=== PATIENT | male | born 1955 ===

== ENCOUNTER 2019-08-31 16:20 | Inpatient (IN) ==
[2019-08-31 17:51] LABS: Basophils % 0.3 % (0.0-0.8); Eosinophils % 0.1 % (0.00-10.9); Hematocrit 35.4 VOL% (42.0-52.0); Hemoglobin 12.3 GM/DL (14.0-18.0); Immature Granulocytes Absolute 0.12 #; Lymphocytes # 0.9 10*3/uL (1.4-4.0); Lymphocytes % 7.4 % (21.2-54.2); Mean Corpuscular HGB Conc 34.7 GM/DL (32-36); Mean Corpuscular Volume 93.4 FL (87-102); Mean Platelet Volume 8.8 FL (9.6-12.0); Monocytes % 10.5 % (1.7-12.7); Neutrophils % 80.7 % (38.7-73.9); Platelet Count 538 T/CUMM (130-400); Red Blood Count 3.79 MC/CUMM (3.8-5.5); Red Cell Distribution Width 13.7 % (9.3-17.3); White Blood Count 11.7 T/CUMM (4-12)
[2019-08-31 18:11] LABS: Calcium 8.5 MG/DL (8.5-10.1); Osmolality,Calculated 242.1 MOS/KG (273-304); Total Protein 7.5 G/DL (6.4-8.3)
[2019-08-31] MEDS ORDERED: GLUCAGON 1 MG VIAL IM PRN (19:14)
[2019-08-31] MEDS ORDERED: DEXTROSE 10% 250 ML BAG IV PRN (19:14)
[2019-08-31] MEDS ORDERED: ZALEPLON 5 MG CAPSULE PO PRN (19:14)
[2019-08-31] MEDS ORDERED: BISACODYL 5 MG TABLET PO PRN (19:14)
[2019-08-31] MEDS ORDERED: ONDANSETRON 4 MG/2 ML VIAL IV PRN (19:14)
[2019-08-31] MEDS: SODIUM CHLORIDE 0.9% 1,000 ML IV SCH (21:27)
[2019-08-31] MEDS: ENOXAPARIN 40 MG/0.4 ML SYRINGE SUBCUT SCH (21:27)
[2019-08-31] MEDS: THIAMINE INJ 100 MG, FOLIC ACID INJ 1 MG, MAGNESIUM SULF INJ 2 GM, MULTIVITAMIN INJ 10 ... IV SCH (21:30)
[2019-09-01 05:09] LABS: Basophils % 0.4 % (0.0-0.8); Eosinophils % 0.4 % (0.00-10.9); Hematocrit 32.8 VOL% (42.0-52.0); Hemoglobin 11.3 GM/DL (14.0-18.0); Immature Granulocytes % 1.8 %; Immature Granulocytes Absolute 0.12 #; Lymphocytes # 1.1 10*3/uL (1.4-4.0); Lymphocytes % 16.5 % (21.2-54.2); Mean Corpuscular HGB Conc 34.5 GM/DL (32-36); Mean Corpuscular Volume 95.3 FL (87-102); Mean Platelet Volume 9.4 FL (9.6-12.0); Neutrophils % 64.9 % (38.7-73.9); Platelet Count 585 T/CUMM (130-400); Red Blood Count 3.44 MC/CUMM (3.8-5.5); Red Cell Distribution Width 13.7 % (9.3-17.3); White Blood Count 6.7 T/CUMM (4-12)
[2019-09-01 05:24] LABS: Osmolality,Calculated 254.9 MOS/KG (273-304)
[2019-09-01 05:35] LABS: Eosinophils 2 % (0-10); Lymphocytes 19 % (20-55); Platelet Estimate Adequate; Segmented Neutrophils 70 % (50-85); Total Cells Counted 100
[2019-09-01] MEDS ORDERED: ceFAZolin 1,000 MG in SYRINGE 1 EACH IV ONE (08:00)
[2019-09-01] MEDS ORDERED: POTASSIUM CHLORIDE 20 MEQ TABLET PO ONE (08:00)
[2019-09-01] MEDS: SODIUM CHLORIDE 0.9% 1,000 ML IV SCH ×4 (09:33→22:53)
[2019-09-01] MEDS: PANTOPRAZOLE 40 MG TABLET PO SCH (09:33)
[2019-09-01] MEDS ORDERED: TRANEXAMIC ACID 1,000 MG/10 ML VIAL ONE (11:11)
[2019-09-01] MEDS ORDERED: fentaNYL 100 MCG/2 ML VIAL ONE (11:29)
[2019-09-01] MEDS ORDERED: LABETALOL 100 MG/20 ML VIAL IV ONE ×2 (11:29→12:43)
[2019-09-01] MEDS ORDERED: SUGAMMADEX 200 MG/2 ML VIAL IV ONE (11:41)
[2019-09-01] MEDS ORDERED: diphenhydrAMINE CAP 25 MG CAPSULE PO PRN (11:59)
[2019-09-01] MEDS ORDERED: LACTULOSE 20 GM/30 ML UDCUP PO PRN (11:59)
[2019-09-01] MEDS ORDERED: PROMETHAZINE 25 MG/1 ML VIAL IM PRN (11:59)
[2019-09-01] MEDS ORDERED: BISACODYL 10 MG SUPP RECTAL PRN (11:59)
[2019-09-01] MEDS ORDERED: MAGNESIUM HYDROXIDE SUSP 30 ML UDCUP PO PRN (11:59)
[2019-09-01] MEDS ORDERED: MORPHINE 4 MG/1 ML VIAL IV PRN ×2 (11:59→12:26)
[2019-09-01] MEDS ORDERED: propofoL 200 MG/20 ML VIAL IV ONE (12:42)
[2019-09-01] MEDS ORDERED: SEVOFLURANE 1 UNIT/15 MINUTE INH ONE (12:42)
[2019-09-01] MEDS ORDERED: LIDOCAINE 2% 5 ML VIAL ONE (12:42)
[2019-09-01] MEDS ORDERED: MIDAZOLAM 2 MG/2 ML VIAL ONE (12:42)
[2019-09-01] MEDS ORDERED: fentaNYL 250 MCG/5 ML VIAL ONE (12:42)
[2019-09-01] MEDS ORDERED: ONDANSETRON 4 MG/2 ML VIAL ONE (12:43)
[2019-09-01] MEDS ORDERED: ROCURONIUM 100 MG/10 ML VIAL IV ONE (12:43)
[2019-09-01] MEDS ORDERED: DEXAMETHASONE 4 MG/1 ML VIAL ONE (12:43)
[2019-09-01] MEDS ORDERED: SUCCINYLCHOLINE 200 MG/10 ML VIAL ONE (12:43)
[2019-09-01] MEDS ORDERED: PHENYLEPHRINE 1 MG/10 ML SYRINGE IV ONE (12:43)
[2019-09-01] MEDS: ceFAZolin 1,000 MG in SYRINGE 1 EACH IV SCH (16:18)
[2019-09-01] MEDS: THIAMINE INJ 100 MG, FOLIC ACID INJ 1 MG, MAGNESIUM SULF INJ 2 GM, MULTIVITAMIN INJ 10 ... IV SCH (22:30)
[2019-09-01] MEDS: ENOXAPARIN 40 MG/0.4 ML SYRINGE SUBCUT SCH (22:30)
[2019-09-02] MEDS: ceFAZolin 1,000 MG in SYRINGE 1 EACH IV SCH (00:35)
[2019-09-02 07:16] LABS: Basophils % 0.2 % (0.0-0.8); Eosinophils % 0.2 % (0.00-10.9); Hematocrit 30.2 VOL% (42.0-52.0); Hemoglobin 10.1 GM/DL (14.0-18.0); Immature Granulocytes Absolute 0.11 #; Lymphocytes % 9.4 % (21.2-54.2); Mean Corpuscular HGB Conc 33.4 GM/DL (32-36); Mean Corpuscular Volume 98.1 FL (87-102); Mean Platelet Volume 9.1 FL (9.6-12.0); Monocytes % 15.4 % (1.7-12.7); Neutrophils % 73.8 % (38.7-73.9); Platelet Count 585 T/CUMM (130-400); Red Blood Count 3.08 MC/CUMM (3.8-5.5); Red Cell Distribution Width 13.7 % (9.3-17.3); White Blood Count 10.6 T/CUMM (4-12)
[2019-09-02] MEDS: PANTOPRAZOLE 40 MG TABLET PO SCH (08:54)
[2019-09-02 08:56] LABS: Calcium 7.5 MG/DL (8.5-10.1); Osmolality,Calculated 255.9 MOS/KG (273-304)
[2019-09-02] MEDS ORDERED: LORazepam 2 MG/1 ML VIAL IV PRN (10:28)
[2019-09-02] MEDS ORDERED: POTASSIUM CHLORIDE 20 MEQ TABLET PO ONE (11:00)
[2019-09-02] MEDS: SODIUM CHLORIDE 0.9% 1,000 ML IV SCH (21:30)
[2019-09-02] MEDS: ENOXAPARIN 40 MG/0.4 ML SYRINGE SUBCUT SCH (21:30)
[2019-09-02] MEDS: THIAMINE INJ 100 MG, FOLIC ACID INJ 1 MG, MAGNESIUM SULF INJ 2 GM, MULTIVITAMIN INJ 10 ... IV SCH (21:30)
[2019-09-03 07:31] LABS: Basophils % 0.5 % (0.0-0.8); Eosinophils % 0.4 % (0.00-10.9); Hematocrit 28.8 VOL% (42.0-52.0); Immature Granulocytes % 1.3 %; Immature Granulocytes Absolute 0.11 #; Lymphocytes # 1.2 10*3/uL (1.4-4.0); Lymphocytes % 13.6 % (21.2-54.2); Mean Corpuscular HGB Conc 34.7 GM/DL (32-36); Mean Platelet Volume 8.8 FL (9.6-12.0); Monocytes % 17.8 % (1.7-12.7); Neutrophils % 66.4 % (38.7-73.9); Platelet Count 568 T/CUMM (130-400); Red Blood Count 3.03 MC/CUMM (3.8-5.5); Red Cell Distribution Width 13.7 % (9.3-17.3); White Blood Count 8.4 T/CUMM (4-12)
[2019-09-03 07:39] LABS: Calcium 7.8 MG/DL (8.5-10.1); Osmolality,Calculated 247.5 MOS/KG (273-304)
[2019-09-03] MEDS ORDERED: MAGNESIUM SULF RIDER 2 GM in PREMIX 1 EACH IV PRN (07:58)
[2019-09-03] MEDS ORDERED: MAGNESIUM SULF RIDER 4 GM in PREMIX 1 EACH IV PRN (07:58)
[2019-09-03 08:02] LABS: Anisocytosis 2+; Band Neutrophils 4 % (0-10); Lymphocytes 16 % (20-55); Platelet Estimate Increased; Segmented Neutrophils 66 % (50-85); Total Cells Counted 100
[2019-09-03 08:03] LABS: Macrocytosis Slight
[2019-09-03] MEDS: PANTOPRAZOLE 40 MG TABLET PO SCH (09:24)
[2019-09-03] MEDS: ENOXAPARIN 40 MG/0.4 ML SYRINGE SUBCUT SCH (20:50)
[2019-09-04 07:57] LABS: Calcium 7.8 MG/DL (8.5-10.1)
[2019-09-04 07:58] LABS: Osmolality,Calculated 253.1 MOS/KG (273-304)
[2019-09-04] MEDS: PANTOPRAZOLE 40 MG TABLET PO SCH (08:45)
[2019-09-04] MEDS: FOLIC ACID 1 MG TABLET PO SCH (08:45)
[2019-09-04] MEDS: MULTIVITAMIN (BEROCCA) TABLET PO SCH (08:45)
[2019-09-04] MEDS: THIAMINE 100 MG TABLET PO SCH (08:45)
[2019-09-04] MEDS ORDERED: CHOLECALCIFEROL 5,000 UNIT TABLET PO SCH (09:00)
[2019-09-04] MEDS ORDERED: ERGOCALCIFEROL 50,000 UNIT CAPSULE PO SCH (14:00)
[2019-09-04] MEDS: ENOXAPARIN 40 MG/0.4 ML SYRINGE SUBCUT SCH (21:27)
[2019-09-05 06:53] LABS: Calcium 7.7 MG/DL (8.5-10.1); Osmolality,Calculated 251.2 MOS/KG (273-304)
[2019-09-05] MEDS: MULTIVITAMIN (BEROCCA) TABLET PO SCH (08:49)
[2019-09-05] MEDS: PANTOPRAZOLE 40 MG TABLET PO SCH (08:49)
[2019-09-05] MEDS: THIAMINE 100 MG TABLET PO SCH (08:49)
[2019-09-05] MEDS: FOLIC ACID 1 MG TABLET PO SCH (08:50)
[2019-09-05] MEDS: ENOXAPARIN 40 MG/0.4 ML SYRINGE SUBCUT SCH (20:33)
[2019-09-06 05:53] LABS: Basophils # 0.1 10*3/uL (0.0-0.2); Eosinophils % 0.6 % (0.00-10.9); Hematocrit 25.7 VOL% (42.0-52.0); Immature Granulocytes % 0.7 %; Immature Granulocytes Absolute 0.05 #; Lymphocytes # 1.3 10*3/uL (1.4-4.0); Lymphocytes % 18.4 % (21.2-54.2); Mean Corpuscular Volume 92.8 FL (87-102); Mean Platelet Volume 8.4 FL (9.6-12.0); Monocytes % 16.8 % (1.7-12.7); Neutrophils % 62.5 % (38.7-73.9); Platelet Count 537 T/CUMM (130-400); Red Blood Count 2.77 MC/CUMM (3.8-5.5); Red Cell Distribution Width 13.6 % (9.3-17.3)
[2019-09-06 06:10] LABS: Osmolality,Calculated 247.5 MOS/KG (273-304)
[2019-09-06 06:50] LABS: Band Neutrophils 1 % (0-10); Eosinophils 1 % (0-10); Lymphocytes 17 % (20-55); Metamyelocytes 1 %; Platelet Estimate Increased; Segmented Neutrophils 65 % (50-85); Total Cells Counted 100
[2019-09-06 06:51] LABS: Anisocytosis 1+; Hypochromasia 1+
[2019-09-06] MEDS ORDERED: MAGNESIUM SULF RIDER 2 GM in PREMIX 1 EACH IV ONE (09:13)
[2019-09-06] MEDS ORDERED: POTASSIUM CHLORIDE 20 MEQ TABLET PO ONE (09:13)
[2019-09-06] MEDS: MULTIVITAMIN (BEROCCA) TABLET PO SCH (11:25)
[2019-09-06] MEDS: FOLIC ACID 1 MG TABLET PO SCH (11:26)
[2019-09-06] MEDS: DOCUSATE SODIUM 100 MG CAPSULE PO PRN ×2 (11:26→19:50)
[2019-09-06] MEDS: THIAMINE 100 MG TABLET PO SCH (11:26)
[2019-09-06] MEDS: PANTOPRAZOLE 40 MG TABLET PO SCH (11:26)
[2019-09-06 13:23] LABS: Free T4 (Free Thyroxine) 1.22 NG/DL (0.76-1.46); Thyroid Stimulating Hormone 1.11 uIU/ml (0.358-3.74)
[2019-09-06] MEDS: ENOXAPARIN 40 MG/0.4 ML SYRINGE SUBCUT SCH (19:49)
[2019-09-07 07:29] LABS: Basophils # 0.1 10*3/uL (0.0-0.2); Basophils % 1.1 % (0.0-0.8); Eosinophils # 0.1 10*3/uL (0.0-0.87); Eosinophils % 1.1 % (0.00-10.9); Hematocrit 26.4 VOL% (42.0-52.0); Immature Granulocytes % 0.6 %; Immature Granulocytes Absolute 0.04 #; Lymphocytes # 1.4 10*3/uL (1.4-4.0); Lymphocytes % 20.7 % (21.2-54.2); Mean Corpuscular HGB Conc 34.1 GM/DL (32-36); Mean Corpuscular Volume 95.3 FL (87-102); Mean Platelet Volume 8.2 FL (9.6-12.0); Neutrophils % 60.5 % (38.7-73.9); Platelet Count 501 T/CUMM (130-400); Red Blood Count 2.77 MC/CUMM (3.8-5.5); Red Cell Distribution Width 14.1 % (9.3-17.3); White Blood Count 6.6 T/CUMM (4-12)
[2019-09-07 07:49] LABS: % Iron Saturation 20.2 % (18-50)
[2019-09-07 07:55] LABS: Calcium 8.1 MG/DL (8.5-10.1); Osmolality,Calculated 254.1 MOS/KG (273-304)
[2019-09-07 07:57] LABS: Band Neutrophils 1 % (0-10); Lymphocytes 19 % (20-55); Segmented Neutrophils 66 % (50-85); Total Cells Counted 100
[2019-09-07 07:58] LABS: Anisocytosis 2+; Macrocytosis 1+; Platelet Estimate Increased
[2019-09-07] MEDS: FOLIC ACID 1 MG TABLET PO SCH (09:20)
[2019-09-07] MEDS: MULTIVITAMIN (BEROCCA) TABLET PO SCH (09:20)
[2019-09-07] MEDS: THIAMINE 100 MG TABLET PO SCH (09:21)
[2019-09-07] MEDS: POTASSIUM CHLORIDE 20 MEQ TABLET PO SCH (09:21)
[2019-09-07] MEDS: PANTOPRAZOLE 40 MG TABLET PO SCH (09:21)
[2019-09-07] MEDS: ENOXAPARIN 40 MG/0.4 ML SYRINGE SUBCUT SCH (20:58)
[2019-09-08] MEDS: MULTIVITAMIN (BEROCCA) TABLET PO SCH (09:15)
[2019-09-08] MEDS: THIAMINE 100 MG TABLET PO SCH (09:15)
[2019-09-08] MEDS: POTASSIUM CHLORIDE 20 MEQ TABLET PO SCH (09:16)
[2019-09-08] MEDS: FOLIC ACID 1 MG TABLET PO SCH (09:16)
[2019-09-08] MEDS: PANTOPRAZOLE 40 MG TABLET PO SCH (09:16)
[2019-09-08 11:50] VITALS: BP 114/52
== END 2019-09-08 14:05 | DRG 469 ==
LOC: EDUNIT# → N.ED 16:20 → SUATTDRO 19:14 → N.EDINP 19:14 → N.3E 22:24 → N.2E 09-01 02:12 → N.3E 09-04 11:00
PROVIDERS: ADMIT Family Medicine; ATTEND Internal Medicine